=== PATIENT | male | born 1980 | race Caucasian/White ===

== ENCOUNTER 2018-07-26 18:25 | Emergency (ER) | payer MEDICAID ==
[~2018-07-26] VITALS: Ht 167.6 cm; Wt 91.0 kg
[~2018-07-26 18:25] MED LIST: ABILIFY; ALTACE; DEPAKOTE; NEXIUM
[2018-07-26] MEDS ORDERED: BACITRACIN ZINC OINT UDPKT TOP ONE (19:00)
[2018-07-26] MEDS ORDERED: TETANUS, DIPHTHERIA, PERTUSSIS VAC/PF 0.5ML (>7YR OLD) IM ONE (19:00)
[2018-07-26 19:36] LABS: BASOPHILS % 0.4 % (0.0-2.0); EOSINOPHILS % 1.6 % (0.0-5.0); HEMATOCRIT. 38.1 % (42.0-52.0); HEMOGLOBIN. 13.1 g/dL (14.0-18.0); LYMPHOCYTES % 28.4 % (20.0-50.0); MEAN CORPUSCULAR HEMOGLOBIN 30.7 pg (28.0-32.0); MEAN CORPUSCULAR VOLUME 89.2 fL (80.0-94.0); MEAN PLATELET VOLUME 8.1 fl (7.4-10.4); MONOCYTES % 8.9 % (2.0-8.0); NEUTROPHILS % 60.7 % (40.0-76.0); PLATELET 126 x1000/uL (130-400); RED BLOOD CELL COUNT 4.27 mill/uL (4.7-6.1); RED CELL DISTRIBUTION WIDTH 14.1 % (11.6-14.6)
[2018-07-26 19:40] LABS: CHLORIDE 106 mEq/L (98-107)
[2018-07-26 19:44] LABS: ETHANOL BLOOD < 10 mg/dL
[2018-07-26 19:49] LABS: CREATINE KINASE 243 IU/L (39-308)
[2018-07-26] MEDS ORDERED: DILTIAZEM HCL 30MG TABLET PO ONE (20:45)
[2018-07-26 21:01] VITALS: BP 127/69
== END 2018-07-26 23:00 | disposition home or self-care (01) ==
LOC: ER 18:25
DX: S01.81XA Laceration without foreign body of other part of head, initial encounter (principal); R00.2 Palpitations; I48.91 Unspecified atrial fibrillation; F17.200 Nicotine dependence, unspecified, uncomplicated; I51.9 Heart disease, unspecified; X99.1XXA Assault by knife, initial encounter; Y93.89 Activity, other specified; Y92.89 Other specified places as the place of occurrence of the external cause; Z95.0 Presence of cardiac pacemaker
CPT/HCPCS: 36415; 80053; 82550; 83880; 84443; 84484; 85025; 90471; 90715; 93005; 99284; G0482

== ENCOUNTER 2022-04-20 10:55 | Emergency (ER) | payer MEDICAID, OTHER ==
[~2022-04-20] VITALS: Ht 167.6 cm; Wt 81.0 kg
[2022-04-20 10:58] VITALS: BP 130/76
== END 2022-04-20 13:56 | disposition home or self-care (01) ==
LOC: ER 10:55
DX: S40.012A Contusion of left shoulder, initial encounter (principal); I48.91 Unspecified atrial fibrillation; Z86.59 Personal history of other mental and behavioral disorders; X58.XXXA Exposure to other specified factors, initial encounter; Y93.89 Activity, other specified; Y92.89 Other specified places as the place of occurrence of the external cause; Y99.8 Other external cause status
CPT/HCPCS: 73030; 99283

== ENCOUNTER 2022-05-20 15:59 | Emergency (ER) | payer MEDICAID, OTHER ==
[~2022-05-20] VITALS: Ht 157.5 cm; Wt 75.0 kg
[2022-05-20] MEDS ORDERED: IBUPROFEN 400MG TABLET PO ONE (18:30)
[2022-05-20] MEDS ORDERED: DICL100G31 TP (19:49)
[2022-05-20 20:20] VITALS: BP 104/73
== END 2022-05-20 20:21 | disposition home or self-care (01) ==
LOC: ER 15:59
DX: M25.512 Pain in left shoulder (principal); I48.91 Unspecified atrial fibrillation; R56.9 Unspecified convulsions; I51.9 Heart disease, unspecified; Z95.0 Presence of cardiac pacemaker
CPT/HCPCS: 73030; 99283

== ENCOUNTER 2023-02-04 17:32 | Emergency (ER) | payer MEDICAID, OTHER ==
[~2023-02-04] VITALS: Ht 172.7 cm; Wt 89.0 kg
[~2023-02-04 17:32] MED LIST changes: +DICL100G31 TP
[2023-02-04 17:49] VITALS: BP 162/94
[2023-02-04] MEDS ORDERED: ACETAMINOPHEN 325MG TABLET PO ONE (19:00)
[2023-02-04] MEDS ORDERED: ACET-2708 MT (20:43)
== END 2023-02-04 21:38 | disposition home or self-care (01) ==
LOC: ER 17:32
DX: M54.9 Dorsalgia, unspecified (principal); I48.91 Unspecified atrial fibrillation; Z95.0 Presence of cardiac pacemaker
CPT/HCPCS: 99284

== ENCOUNTER 2023-02-11 11:28 | Emergency (ER) | payer MEDICAID ==
[~2023-02-11] VITALS: Ht 162.6 cm; Wt 90.7 kg
[~2023-02-11 11:28] MED LIST changes: +ACET-2708 MT
[2023-02-11 11:36] VITALS: TEMP 98.6; O2SAT 98
[2023-02-11] MEDS ORDERED: FLUORESCEIN SODIUM 1MG/STRIP RIGHTEYE ONE (12:30)
[2023-02-11] MEDS ORDERED: TETRACAINE 0.5% OPHTH DROPS 4ML RIGHTEYE ONE (13:00)
[2023-02-11] MEDS ORDERED: BRIMONIDINE 0.2% OPHTH DROPS 5ML RIGHTEYE ONE (13:15)
[2023-02-11] MEDS ORDERED: ACETAZOLAMIDE SODIUM 500MG/VIAL IV ONE (13:15)
[2023-02-11] MEDS ORDERED: ACETAMINOPHEN 500MG TABLET PO ONE (13:15)
[2023-02-11] MEDS ORDERED: PILOCARPINE HCL 2% OPHTH DROPS 15ML RIGHTEYE SCH (14:00)
[2023-02-11] MEDS ORDERED: TETRACAINE 0.5% OPHTH DROPS 4ML RIGHTEYE NR (14:15)
[2023-02-11] MEDS ORDERED: ACETAMINOPHEN 500MG TABLET PO NR (14:15)
[2023-02-11] MEDS ORDERED: ACET-2708 MT (17:11)
[2023-02-11] MEDS ORDERED: METH50TA6 MT (17:11)
[2023-02-11] MEDS ORDERED: AMOX1TAB16 MT (17:11)
[2023-02-11] MEDS ORDERED: SULF1TAB48 MT (17:11)
[2023-02-11 18:14] VITALS: BP 126/79; PULSE 101; RESP 16
[2023-02-11] MEDS ORDERED: TIMOLOL MALEATE 0.5% OPHTH DROPS 5ML RIGHTEYE SCH (21:00)
== END 2023-02-11 18:42 | disposition home or self-care (01) ==
LOC: ER 11:28
DX: H57.11 Ocular pain, right eye (principal); I48.91 Unspecified atrial fibrillation; Z95.0 Presence of cardiac pacemaker
CPT/HCPCS: 70480; 96374; 99285; J1120; Z7610

== ENCOUNTER 2023-05-04 10:46 | Emergency (ER) | payer MEDICAID ==
[~2023-05-04] VITALS: Ht 172.7 cm; Wt 97.0 kg
[~2023-05-04 10:46] MED LIST changes: +AMOX1TAB16 MT; +METH50TA6 MT; +SULF1TAB48 MT
[2023-05-04 11:12] VITALS: O2SAT 100
[2023-05-04 12:00] LABS: BASOPHILS % 0.4 % (0.0-2.0); EOSINOPHILS % 0.4 % (0.0-5.0); HEMATOCRIT. 46.8 % (42.0-52.0); LYMPHOCYTES % 21.2 % (20.0-50.0); MEAN CORPUSCULAR HEMOGLOBIN 29.8 pg (28.0-32.0); MEAN CORPUSCULAR HGB CONC 34.2 g/dL (31.0-37.0); MEAN CORPUSCULAR VOLUME 87.2 fL (80.0-94.0); MEAN PLATELET VOLUME 8.5 fl (7.4-10.4); MONOCYTES % 13.3 % (2.0-8.0); NEUTROPHILS % 64.7 % (40.0-76.0); PLATELET 159 x1000/uL (130-400); RED BLOOD CELL COUNT 5.36 mill/uL (4.7-6.1); RED CELL DISTRIBUTION WIDTH 13.7 % (11.6-14.6); WHITE BLOOD COUNT 6.4 x1000/uL (4.5-11.0)
[2023-05-04 12:53] LABS: CLARITY URINE CLEAR (CLEAR); COLOR URINE DARK YELLOW (YELLOW); GLUCOSE URINE NEGATIVE (NEGATIVE); KETONES URINE TRACE (NEGATIVE); LEUKOCYTE ESTERASE URINE NEGATIVE (NEGATIVE); NITRITE URINE NEGATIVE (NEGATIVE); OCCULT BLOOD URINE NEGATIVE (NEGATIVE); PROTEIN URINE TRACE (NEGATIVE); SPECIFIC GRAVITY URINE 1.026 (1.005-1.030); UROBILINOGEN URINE 0.2 E.U./dL (0.2-1.0)
[2023-05-04 13:30] LABS: MUCUS URINE TRACE /lpf (NONE/TRACE)
[2023-05-04 13:31] LABS: BACTERIA URINE TRACE; SQUAMOUS EPITHELIAL CELL URINE NONE SEEN /lpf (RARE/1+)
[2023-05-04 13:32] LABS: RBC URINE 0-2 /hpf (0-2); WBC URINE 0-2 /hpf (0-2)
[2023-05-04 13:57] LABS: CHLORIDE 108 mEq/L (98-107); INDEX HEMOLYSI 1 (1-3); INDEX ICTERIC 1 (1-4); INDEX LIPEMIC 1 (1-3); POTASSIUM 4.5 mEq/L (3.5-5.1); SODIUM 137 mEq/L (136-145)
[2023-05-04 14:46] LABS: ALANINE AMINOTRANSFERASE 35 IU/L (13-61); ALBUMIN 3.8 g/dL (3.4-5.0); ASPARTATE AMINOTRANSFERASE 21 IU/L (15-37); BILIRUBIN TOTAL 0.7 mg/dL (0.1-1.0); CALCIUM 9.3 mg/dL (8.5-10.1); CARBON DIOXIDE 22 mEq/L (21-32); CREATININE 0.9 mg/dL (0.6-1.3); GLUCOSE 101 mg/dL (70-105); PROTEIN TOTAL 7.7 g/dL (6.0-8.3); UREA NITROGEN BLOOD 20 mg/dL (7-21)
[2023-05-04] MEDS ORDERED: ACETAMINOPHEN 500MG TABLET PO ONE (15:00)
[2023-05-04 16:00] VITALS: BP 132/87; PULSE 65; RESP 18; TEMP 98.7
== END 2023-05-04 16:01 | disposition home or self-care (01) ==
LOC: ER 10:46
DX: R10.30 Lower abdominal pain, unspecified (principal); I48.91 Unspecified atrial fibrillation; Z86.59 Personal history of other mental and behavioral disorders
CPT/HCPCS: 36415; 74176; 80053; 81003; 85025; 99284

== ENCOUNTER 2023-05-23 13:56 | Emergency (ER) | payer MEDICAID, OTHER ==
[~2023-05-23] VITALS: Ht 160 cm; Wt 90.7 kg
[~2023-05-23 13:56] MED LIST changes: -DICL100G31 TP; +DICL100G58 TP
[2023-05-23 14:16] VITALS: BP 132/82; O2SAT 97
[2023-05-23] MEDS ORDERED: MAGNESIUM/ALUMINUM HYDROXIDE/SIMETHICONE 30ML UDC PO STA (15:45)
[2023-05-23] MEDS ORDERED: SODIUM CHLORIDE 0.9% 1,000 ML IV ONE (15:45)
[2023-05-23] MEDS ORDERED: ONDANSETRON 4MG ODT PO STA (15:45)
[2023-05-23 16:24] LABS: BASOPHILS % 0.5 % (0.0-2.0); EOSINOPHILS % 0.4 % (0.0-5.0); HEMATOCRIT. 48.9 % (42.0-52.0); HEMOGLOBIN. 16.3 g/dL (14.0-18.0); LYMPHOCYTES % 19.3 % (20.0-50.0); MEAN CORPUSCULAR HEMOGLOBIN 29.6 pg (28.0-32.0); MEAN CORPUSCULAR HGB CONC 33.4 g/dL (31.0-37.0); MEAN CORPUSCULAR VOLUME 88.5 fL (80.0-94.0); MEAN PLATELET VOLUME 9.4 fl (7.4-10.4); MONOCYTES % 8.7 % (2.0-8.0); NEUTROPHILS % 71.1 % (40.0-76.0); PLATELET 162 x1000/uL (130-400); RED BLOOD CELL COUNT 5.52 mill/uL (4.7-6.1); RED CELL DISTRIBUTION WIDTH 13.9 % (11.6-14.6); WHITE BLOOD COUNT 8.8 x1000/uL (4.5-11.0)
[2023-05-23 16:37] LABS: CHLORIDE 107 mEq/L (98-107); INDEX HEMOLYSI 1 (1-3); INDEX ICTERIC 1 (1-4); INDEX LIPEMIC 1 (1-3); POTASSIUM 4.7 mEq/L (3.5-5.1); SODIUM 136 mEq/L (136-145)
[2023-05-23] MEDS ORDERED: AZIT250T12 MT (16:42)
[2023-05-23 16:44] LABS: ALANINE AMINOTRANSFERASE 38 IU/L (13-61); ALBUMIN 4.1 g/dL (3.4-5.0); ASPARTATE AMINOTRANSFERASE 18 IU/L (15-37); BILIRUBIN TOTAL 0.7 mg/dL (0.1-1.0); CALCIUM 9.1 mg/dL (8.5-10.1); CARBON DIOXIDE 26 mEq/L (21-32); CREATININE 0.9 mg/dL (0.6-1.3); GLUCOSE 84 mg/dL (70-105); PROTEIN TOTAL 7.9 g/dL (6.0-8.3); UREA NITROGEN BLOOD 14 mg/dL (7-21)
[2023-05-23] MEDS ORDERED: AZITHROMYCIN 500 MG TABLET PO ONE (16:45)
[2023-05-23 17:29] VITALS: PULSE 51; RESP 16; TEMP 98.8
== END 2023-05-23 17:30 | disposition home or self-care (01) ==
LOC: ER 13:56
DX: J18.9 Pneumonia, unspecified organism (principal); Z98.890 Other specified postprocedural states
CPT/HCPCS: 80053; 85025; 36415; 71045; 93005; 99285; Q0162; J7030; Z7610

== ENCOUNTER 2023-06-02 16:41 | Emergency (ER) | payer MEDICAID, OTHER ==
[~2023-06-02] VITALS: Ht 172.7 cm; Wt 91.0 kg
[~2023-06-02 16:41] MED LIST changes: +AZIT250T12 MT
[2023-06-02 16:58] VITALS: BP 131/81; PULSE 70; RESP 18; O2SAT 96
[2023-06-02] MEDS ORDERED: ACETAMINOPHEN 325MG TABLET PO ONE (19:30)
[2023-06-02] MEDS ORDERED: ACETAMINOPHEN 325MG TABLET PO NR (21:45)
[2023-06-02 22:20] VITALS: TEMP 98.8
[2023-06-03] MEDS ORDERED: ACET-2708 MT (01:56)
== END 2023-06-03 05:00 | disposition home or self-care (01) ==
LOC: ER 16:41
DX: H57.12 Ocular pain, left eye (principal); Z95.0 Presence of cardiac pacemaker; Z79.899 Other long term (current) drug therapy
CPT/HCPCS: 70486; 99284

== ENCOUNTER 2023-11-22 21:56 | Emergency (ER) | payer OTHER ==
[~2023-11-22] VITALS: Ht 167.6 cm; Wt 98.0 kg
[~2023-11-22 21:56] MED LIST changes: -ABILIFY; -ACET-2708 MT; -ALTACE; -AMOX1TAB16 MT; +APIX5TAB PO; +ATOR10TA PO; -AZIT250T12 MT; +DAPA5TAB MT; -DEPAKOTE; +KEPP500 PO; -NEXIUM; +SACU1TAB MT; +SPIR25TA PO; -SULF1TAB48 MT
[2023-11-22 21:59] VITALS: O2SAT 98
[2023-11-22 23:43] LABS: BASOPHILS % 0.4 % (0.0-2.0); EOSINOPHILS % 0.5 % (0.0-5.0); HEMATOCRIT. 37.3 % (42.0-52.0); LYMPHOCYTES % 18.8 % (20.0-50.0); MEAN CORPUSCULAR HEMOGLOBIN 30.5 pg (28.0-32.0); MEAN CORPUSCULAR HGB CONC 34.9 g/dL (31.0-37.0); MEAN CORPUSCULAR VOLUME 87.7 fL (80.0-94.0); MEAN PLATELET VOLUME 9.2 fl (7.4-10.4); MONOCYTES % 6.3 % (2.0-8.0); PLATELET 180 x1000/uL (130-400); RED BLOOD CELL COUNT 4.26 mill/uL (4.7-6.1); RED CELL DISTRIBUTION WIDTH 13.5 % (11.6-14.6); WHITE BLOOD COUNT 6.2 x1000/uL (4.5-11.0)
[2023-11-22] MEDS: SODIUM CHLORIDE 0.9% 1,000 ML IV ONE (23:58)
[2023-11-23 00:18] LABS: ALANINE AMINOTRANSFERASE 40 IU/L (10-49); ALBUMIN 4.5 g/dL (3.2-4.8); ASPARTATE AMINOTRANSFERASE 29 IU/L (<34); BILIRUBIN TOTAL 0.5 mg/dL (0.1-1.0); CALCIUM 8.7 mg/dL (8.7-10.4); CARBON DIOXIDE 24 mEq/L (21-32); CHLORIDE 108 mEq/L (98-107); GLUCOSE 173 mg/dL (70-105); POTASSIUM 3.7 mEq/L (3.5-5.1); PROTEIN TOTAL 7.3 g/dL (6.0-8.3); SODIUM 141 mEq/L (136-145); TROPONIN I HIGH SENSITIVITY 4 ng/L (3.0-53); UREA NITROGEN BLOOD 20 mg/dL (9-23)
[2023-11-23] MEDS: MECLIZINE 25MG TABLET PO ONE (00:24)
[2023-11-23] MEDS ORDERED: MECL-217 MT (03:34)
[2023-11-23 03:35] LABS: TROPONIN I HIGH SENSITIVITY 5 ng/L (3.0-53)
[2023-11-23 04:28] VITALS: BP 133/69; PULSE 60; RESP 12; TEMP 98
== END 2023-11-23 04:29 | disposition home or self-care (01) ==
LOC: ER 21:56
DX: R42 Dizziness and giddiness (principal); Z98.890 Other specified postprocedural states; Z86.59 Personal history of other mental and behavioral disorders
CPT/HCPCS: 99285; 96360; 70450; 71045; 80053; 83605; 85025; 84484 ×2; 36415 ×2; 93005; J8597; J7030

== ENCOUNTER 2023-12-20 15:26 | Emergency (ER) | payer MEDICAID, OTHER ==
[~2023-12-20] VITALS: Ht 170.2 cm; Wt 91.0 kg
[~2023-12-20 15:26] MED LIST changes: +MECL-217 MT
[2023-12-20 15:32] VITALS: O2SAT 96
[2023-12-20] MEDS: FLUORESCEIN SODIUM 1MG/STRIP BOTHEYE ONE (16:00)
[2023-12-20] MEDS: TETRACAINE 0.5% OPHTH DROPS 4ML BOTHEYE ONE (16:00)
[2023-12-20] MEDS: KETOROLAC 30MG/ML VIAL IV STA (17:19)
[2023-12-20] MEDS: SODIUM CHLORIDE 0.9% 1,000 ML IV ONE (17:22)
[2023-12-20 17:26] LABS: BASOPHILS % 0.4 % (0.0-2.0); EOSINOPHILS % 0.7 % (0.0-5.0); HEMATOCRIT. 39.4 % (42.0-52.0); HEMOGLOBIN. 13.6 g/dL (14.0-18.0); MEAN CORPUSCULAR HEMOGLOBIN 30.4 pg (28.0-32.0); MEAN CORPUSCULAR HGB CONC 34.6 g/dL (31.0-37.0); MEAN CORPUSCULAR VOLUME 87.8 fL (80.0-94.0); MEAN PLATELET VOLUME 8.5 fl (7.4-10.4); MONOCYTES % 8.9 % (2.0-8.0); PLATELET 186 x1000/uL (130-400); RED BLOOD CELL COUNT 4.48 mill/uL (4.7-6.1); RED CELL DISTRIBUTION WIDTH 13.7 % (11.6-14.6); WHITE BLOOD COUNT 7.5 x1000/uL (4.5-11.0)
[2023-12-20 17:31] LABS: CHLORIDE 106 mEq/L (98-107); POTASSIUM 4.2 mEq/L (3.5-5.1); SODIUM 138 mEq/L (136-145)
[2023-12-20 17:32] LABS: CALCIUM 8.8 mg/dL (8.7-10.4); CARBON DIOXIDE 26 mEq/L (21-32)
[2023-12-20 17:37] LABS: CREATININE 0.9 mg/dL (0.6-1.3); GLUCOSE 100 mg/dL (70-105); UREA NITROGEN BLOOD 20 mg/dL (9-23)
[2023-12-20 17:39] LABS: ALANINE AMINOTRANSFERASE 25 IU/L (10-49); ALBUMIN 4.3 g/dL (3.2-4.8); ASPARTATE AMINOTRANSFERASE 21 IU/L (<34); BILIRUBIN TOTAL 0.4 mg/dL (0.1-1.0); PROTEIN TOTAL 7.3 g/dL (6.0-8.3)
[2023-12-20] MEDS ORDERED: OFLO5DRO LEFTEYE (18:29)
[2023-12-20] MEDS ORDERED: IBUP-2028 MT (18:30)
[2023-12-20 19:10] VITALS: BP 160/78; PULSE 63; RESP 19; TEMP 98
== END 2023-12-20 19:31 | disposition home or self-care (01) ==
LOC: ER 15:26
DX: R51.9 Headache, unspecified (principal); H10.9 Unspecified conjunctivitis; H57.13 Ocular pain, bilateral; F03.90 Unspecified dementia, unspecified severity, without behavioral disturbance, psychotic disturbance, mood disturbance, and anxiety; I10 Essential (primary) hypertension; Z79.899 Other long term (current) drug therapy
CPT/HCPCS: 80053; 85025; 36415; 70450; 96361; 96374; 99285; J1885; J7030; Z7610 ×4

== ENCOUNTER 2023-12-21 14:45 | Emergency (ER) | payer OTHER, MEDICAID ==
[~2023-12-21] VITALS: Ht 162.6 cm; Wt 82.0 kg
[~2023-12-21 14:45] MED LIST changes: +IBUP-2028 MT; +OFLO5DRO LEFTEYE
[2023-12-21 14:49] VITALS: O2SAT 100
[2023-12-21] MEDS: POLYMYXIN B SULFATE/TMP 10ML BOTTLE LEFTEYE SCH (17:02)
[2023-12-21] MEDS: IBUPROFEN 600MG TABLET PO ONE (17:12)
[2023-12-21 18:05] VITALS: BP 143/70; PULSE 72; RESP 18; TEMP 98.7
== END 2023-12-21 18:06 | disposition home or self-care (01) ==
LOC: ER 14:45
DX: H10.9 Unspecified conjunctivitis (principal); F03.90 Unspecified dementia, unspecified severity, without behavioral disturbance, psychotic disturbance, mood disturbance, and anxiety; I10 Essential (primary) hypertension
CPT/HCPCS: 99283

== ENCOUNTER 2024-02-09 18:54 | Emergency (ER) | payer MEDICAID, OTHER ==
[~2024-02-09] VITALS: Ht 170.2 cm; Wt 91.0 kg
[2024-02-09 18:57] VITALS: TEMP 98; O2SAT 98
[2024-02-09 21:10] VITALS: BP 163/72; PULSE 69; RESP 16
[2024-02-09] MEDS: DIPHENHYDRAMINE 50MG/ML VIAL IM ONE (21:10)
[2024-02-09] MEDS: METOCLOPRAMIDE HCL 10MG/2ML VIAL IM ONE (21:10)
[2024-02-09] MEDS: KETOROLAC 15MG/ML VIAL IM ONE (21:10)
[2024-02-09 22:30] LABS: BASOPHILS % 0.4 % (0.0-2.0); EOSINOPHILS % 0.3 % (0.0-5.0); HEMATOCRIT. 41.2 % (42.0-52.0); HEMOGLOBIN. 14.4 g/dL (14.0-18.0); LYMPHOCYTES % 24.7 % (20.0-50.0); MEAN CORPUSCULAR HGB CONC 34.9 g/dL (31.0-37.0); MEAN CORPUSCULAR VOLUME 85.8 fL (80.0-94.0); MEAN PLATELET VOLUME 8.6 fl (7.4-10.4); MONOCYTES % 8.7 % (2.0-8.0); NEUTROPHILS % 65.9 % (40.0-76.0); PLATELET 166 x1000/uL (130-400); RED CELL DISTRIBUTION WIDTH 13.7 % (11.6-14.6); WHITE BLOOD COUNT 5.7 x1000/uL (4.5-11.0)
[2024-02-09 22:37] LABS: CHLORIDE 104 mEq/L (98-107); POTASSIUM 4.1 mEq/L (3.5-5.1); SODIUM 137 mEq/L (136-145)
[2024-02-09 22:38] LABS: CARBON DIOXIDE 27 mEq/L (21-32)
[2024-02-09 22:39] LABS: CALCIUM 9.9 mg/dL (8.7-10.4)
[2024-02-09 22:43] LABS: CREATININE 0.9 mg/dL (0.6-1.3)
[2024-02-09 22:44] LABS: GLUCOSE 88 mg/dL (70-105); UREA NITROGEN BLOOD 14 mg/dL (9-23)
[2024-02-09 22:46] LABS: TROPONIN I HIGH SENSITIVITY < 4 ng/L (3.0-53)
== END 2024-02-09 23:57 | disposition home or self-care (01) ==
LOC: ER 18:54
DX: R51.9 Headache, unspecified (principal); F03.90 Unspecified dementia, unspecified severity, without behavioral disturbance, psychotic disturbance, mood disturbance, and anxiety; I10 Essential (primary) hypertension; Z95.0 Presence of cardiac pacemaker; Z79.899 Other long term (current) drug therapy
CPT/HCPCS: 99284; 80048; 83880; 85025; 84484; 36415; 93005; 96372; J1200; J1885; J2765

== ENCOUNTER 2024-04-26 18:11 | Inpatient (IN) | payer MEDICAID, OTHER ==
[~2024-04-26] VITALS: Ht 170.2 cm; Wt 90.7 kg
[2024-04-26 18:16] VITALS: O2SAT 98
[2024-04-26 18:51] LABS: BASOPHILS % 0.5 % (0.0-2.0); EOSINOPHILS % 0.1 % (0.0-5.0); HEMATOCRIT. 44.1 % (42.0-52.0); LYMPHOCYTES % 19.9 % (20.0-50.0); MEAN CORPUSCULAR HEMOGLOBIN 29.5 pg (28.0-32.0); MEAN CORPUSCULAR HGB CONC 33.9 g/dL (31.0-37.0); MEAN CORPUSCULAR VOLUME 87.1 fL (80.0-94.0); MEAN PLATELET VOLUME 9.2 fl (7.4-10.4); MONOCYTES % 7.2 % (2.0-8.0); NEUTROPHILS % 72.3 % (40.0-76.0); PLATELET 171 x1000/uL (130-400); RED BLOOD CELL COUNT 5.07 mill/uL (4.7-6.1); RED CELL DISTRIBUTION WIDTH 13.7 % (11.6-14.6); WHITE BLOOD COUNT 7.6 x1000/uL (4.5-11.0)
[2024-04-26 18:54] LABS: CLARITY URINE CLEAR (CLEAR); COLOR URINE YELLOW (YELLOW); GLUCOSE URINE NEGATIVE (NEGATIVE); KETONES URINE NEGATIVE (NEGATIVE); LEUKOCYTE ESTERASE URINE NEGATIVE (NEGATIVE); NITRITE URINE NEGATIVE (NEGATIVE); OCCULT BLOOD URINE NEGATIVE (NEGATIVE); PROTEIN URINE NEGATIVE (NEGATIVE); SPECIFIC GRAVITY URINE 1.008 (1.005-1.030); UROBILINOGEN URINE 0.2 E.U./dL (0.2-1.0)
[2024-04-26 18:55] LABS: CHLORIDE 106 mEq/L (98-107); POTASSIUM 3.8 mEq/L (3.5-5.1); SODIUM 139 mEq/L (136-145)
[2024-04-26 18:56] LABS: CALCIUM 9.7 mg/dL (8.7-10.4); CARBON DIOXIDE 27 mEq/L (21-32)
[2024-04-26 19:01] LABS: GLUCOSE 97 mg/dL (70-105); UREA NITROGEN BLOOD 13 mg/dL (9-23)
[2024-04-26 19:02] LABS: INR 1.1; PROTHROMBIN TIME 11.7 sec (9.6-11.0)
[2024-04-26 19:03] LABS: ALANINE AMINOTRANSFERASE 26 IU/L (10-49); ALBUMIN 4.9 g/dL (3.2-4.8); ASPARTATE AMINOTRANSFERASE 20 IU/L (<34); BILIRUBIN DIRECT 0.3 mg/dL (<=3.0); BILIRUBIN TOTAL 0.8 mg/dL (0.1-1.0); PROTEIN TOTAL 7.5 g/dL (6.0-8.3)
[2024-04-26] MEDS: ACETAMINOPHEN 500MG TABLET PO ONE (20:06)
[2024-04-26] MEDS ORDERED: NITROGLYCERIN 0.4MG TABLET SL SL PRN (22:45)
[2024-04-26 23:08] LABS: IRON 96 ug/dL (65-175)
[2024-04-26 23:09] LABS: TRIGLYCERIDE 126 mg/dL (0-150)
[2024-04-26 23:10] LABS: LDL CHOLESTEROL 110 mg/dL (5-100)
[2024-04-26 23:11] LABS: CHOLESTEROL 159 mg/dL (<200); HDL CHOLESTEROL 35 mg/dL (>55); TOTAL IRON BINDING CAPACITY 268 ug/dl (250-425)
[2024-04-26 23:13] LABS: THYROID STIMULATING HORMONE 2.62 uIU/mL (0.55-4.78)
[2024-04-26 23:14] LABS: FOLIC ACID (FOLATE) SERUM 16.39 ng/mL (>5.38)
[2024-04-26 23:15] LABS: VITAMIN B12 SERUM 464 pg/mL (211-911)
[2024-04-26] MEDS: IBUPROFEN 600MG TABLET PO ONE (23:22)
[2024-04-27] VITALS (8 sets, daily range): BP systolic 115–149; BP diastolic 65–91; PULSE 57–77; RESP 18–20; TEMP 35.78064–36.5292; O2SAT 96–100
[2024-04-27] MEDS: KETOROLAC 15MG/ML VIAL IV NR (00:40)
[2024-04-27] MEDS: METOPROLOL TARTRATE 5MG/5ML VIAL IV NR ×2 (03:37→03:57)
[2024-04-27] MEDS: DILTIAZEM HCL 60MG TABLET PO SCH ×2 (04:00→14:19)
[2024-04-27] MEDS: ACETAMINOPHEN 325MG TABLET PO NR (05:21)
[2024-04-27 06:12] LABS: CHLORIDE 106 mEq/L (98-107); POTASSIUM 3.7 mEq/L (3.5-5.1); SODIUM 138 mEq/L (136-145)
[2024-04-27 06:15] LABS: CALCIUM 8.9 mg/dL (8.7-10.4); CARBON DIOXIDE 23 mEq/L (21-32)
[2024-04-27 06:20] LABS: CREATININE 0.9 mg/dL (0.6-1.3); GLUCOSE 100 mg/dL (70-105); UREA NITROGEN BLOOD 13 mg/dL (9-23)
[2024-04-27 06:21] LABS: BASOPHILS % 0.4 % (0.0-2.0); EOSINOPHILS % 0.4 % (0.0-5.0); HEMATOCRIT. 42.8 % (42.0-52.0); HEMOGLOBIN. 14.2 g/dL (14.0-18.0); LYMPHOCYTES % 31.3 % (20.0-50.0); MEAN CORPUSCULAR HEMOGLOBIN 28.9 pg (28.0-32.0); MEAN CORPUSCULAR HGB CONC 33.3 g/dL (31.0-37.0); MEAN CORPUSCULAR VOLUME 86.8 fL (80.0-94.0); MEAN PLATELET VOLUME 9.7 fl (7.4-10.4); MONOCYTES % 9.1 % (2.0-8.0); NEUTROPHILS % 58.8 % (40.0-76.0); PLATELET 154 x1000/uL (130-400); RED BLOOD CELL COUNT 4.93 mill/uL (4.7-6.1); RED CELL DISTRIBUTION WIDTH 13.8 % (11.6-14.6); WHITE BLOOD COUNT 5.6 x1000/uL (4.5-11.0)
[2024-04-27 06:22] LABS: ALANINE AMINOTRANSFERASE 22 IU/L (10-49); ALBUMIN 4.1 g/dL (3.2-4.8); ASPARTATE AMINOTRANSFERASE 16 IU/L (<34); BILIRUBIN TOTAL 0.6 mg/dL (0.1-1.0); PHOSPHORUS 3.2 mg/dL (2.5-4.9); PROTEIN TOTAL 6.7 g/dL (6.0-8.3)
[2024-04-27] MEDS ORDERED: GUAIFENESIN 200MG/10ML SUGAR FREE UDC PO PRN (06:45)
[2024-04-27] MEDS ORDERED: ACETAMINOPHEN 325MG TABLET PO PRN (06:45)
[2024-04-27] MEDS: DILTIAZEM HCL 30MG TABLET PO NR (06:45)
[2024-04-27] MEDS ORDERED: IPRATROPIUM/ALBUTEROL 0.5-3(2.5)MG/3ML NEB NEB PRN (06:45)
[2024-04-27] MEDS ORDERED: ONDANSETRON HCL 4MG/2ML INJ IV PRN (06:45)
[2024-04-27] MEDS ORDERED: CLONIDINE 0.1MG TABLET PO PRN (06:45)
[2024-04-27] MEDS ORDERED: MAGNESIUM/ALUMINUM HYDROXIDE/SIMETHICONE 30ML UDC PO PRN (06:45)
[2024-04-27] MEDS ORDERED: DOCUSATE SODIUM 100MG CAPSULE PO PRN (06:45)
[2024-04-27] MEDS: LEVETIRACETAM 500MG TABLET PO SCH (08:15)
[2024-04-27] MEDS: FAMOTIDINE 20MG TABLET PO SCH (08:16)
[2024-04-27] MEDS: APIXABAN 5 MG TABLET PO SCH (08:16)
[2024-04-27] MEDS: ASPIRIN 81MG EC TABLET PO SCH (08:17)
[2024-04-27] MEDS ORDERED: METOPROLOL TARTRATE 25MG TABLET PO SCH (09:00)
[2024-04-27] MEDS: DIGOXIN 500MCG/2ML AMP IV NR (12:26)
[2024-04-27] MEDS: DILTIAZEM HCL 5MG/ML 5ML VIAL IV NR ×3 (12:26→18:44)
[2024-04-27] MEDS: ACETAMINOPHEN 325MG TABLET PO PRN (12:27)
[2024-04-27 16:11] LABS: CREATINE KINASE 149 IU/L (46-171)
[2024-04-27 16:12] LABS: CREATINE KINASE MB FRACTION 2.2 ng/mL (0.5-3.6); TROPONIN I HIGH SENSITIVITY 5 ng/L (3.0-53)
[2024-04-27] MEDS: DIGOXIN 125MCG TABLET PO SCH (17:28)
[2024-04-27] MEDS: ZOLPIDEM TARTRATE 5MG TABLET PO PRN (20:48)
[2024-04-27 22:11] LABS: CREATINE KINASE MB FRACTION 1.8 ng/mL (0.5-3.6)
[2024-04-28] VITALS: BP 107/55; PULSE 68; RESP 20; TEMP 36.114; O2SAT 97
[2024-04-28 04:00] VITALS: BP 112/76; PULSE 64; RESP 20; TEMP 35.94732; O2SAT 99
[2024-04-28 07:48] VITALS: BP 123/78; PULSE 71; RESP 20; TEMP 36.61404; O2SAT 97
[2024-04-28] MEDS ORDERED: ASPI-1406 PO (09:39)
[2024-04-28] MEDS ORDERED: APIX5TAB PO (09:39)
[2024-04-28] MEDS ORDERED: DILT180C66 MT (09:39)
[2024-04-28] MEDS ORDERED: ATOR10TA PO (09:39)
[2024-04-28] MEDS ORDERED: DIGO-34 PO (09:39)
[2024-04-28] MEDS: DILTIAZEM HCL 5MG/ML 5ML VIAL IV NR (09:55)
[2024-04-28] MEDS: DIGOXIN 500MCG/2ML AMP IV NR (09:55)
[2024-04-28 11:57] VITALS: BP 131/87; PULSE 96; RESP 18; TEMP 36.50292; O2SAT 97
== END 2024-04-28 13:55 | disposition left against medical advice (07) | DRG 201 ==
LOC: ER 18:11 → 8WST 22:15
PROVIDERS: ADMIT Internal Medicine; ATTEND Internal Medicine
DX: I48.91 Unspecified atrial fibrillation (principal); F03.90 Unspecified dementia, unspecified severity, without behavioral disturbance, psychotic disturbance, mood disturbance, and anxiety; I50.9 Heart failure, unspecified; I11.0 Hypertensive heart disease with heart failure; G40.909 Epilepsy, unspecified, not intractable, without status epilepticus; I25.10 Atherosclerotic heart disease of native coronary artery without angina pectoris; Z53.29 Procedure and treatment not carried out because of patient's decision for other reasons; Z79.899 Other long term (current) drug therapy; Z95.0 Presence of cardiac pacemaker
CPT/HCPCS: 36415; 71045; 76604; 80048; 80053; 80061; 80076; 81003; 82550; 82553; 82607; 82746; 83036; 83540; 83550; 83735; 83880; 84100; 84439; 84443; 84484; 85025; 93005; 93970; 99285; J1160; J1885; J3490

== ENCOUNTER 2024-11-13 10:38 | Emergency (ER) | payer MEDICAID, OTHER ==
[~2024-11-13] VITALS: Ht 177.8 cm; Wt 105.0 kg
[~2024-11-13 10:38] MED LIST changes: +AMI2 MT; +ASPI-1406 PO; +DIGO-34 PO; -IBUP-2028 MT; +METO-385 PO
[2024-11-13 10:46] VITALS: O2SAT 94
[2024-11-13] MEDS: DILTIAZEM HCL 5MG/ML 5ML VIAL IV ONE (11:32)
[2024-11-13] MEDS: LACTATED RINGERS 1,000 ML IV SCH (11:33)
[2024-11-13] MEDS: LEVETIRACETAM 500MG PREMIX 100 ML IV ONE ×2 (11:41)
[2024-11-13] MEDS: DILTIAZEM HCL 30MG TABLET PO ONE (11:41)
[2024-11-13 12:07] LABS: BASOPHILS % 0.4 % (0.0-2.0); EOSINOPHILS % 0.4 % (0.0-5.0); HEMATOCRIT. 42.2 % (42.0-52.0); HEMOGLOBIN. 13.9 g/dL (14.0-18.0); LYMPHOCYTES % 20.9 % (20.0-50.0); MEAN CORPUSCULAR HEMOGLOBIN 28.8 pg (28.0-32.0); MEAN CORPUSCULAR VOLUME 87.4 fL (80.0-94.0); MEAN PLATELET VOLUME 9.2 fl (7.4-10.4); MONOCYTES % 7.7 % (2.0-8.0); NEUTROPHILS % 70.6 % (40.0-76.0); PLATELET 179 x1000/uL (130-400); RED BLOOD CELL COUNT 4.83 mill/uL (4.7-6.1); RED CELL DISTRIBUTION WIDTH 14.3 % (11.6-14.6); WHITE BLOOD COUNT 5.7 x1000/uL (4.5-11.0)
[2024-11-13 12:13] LABS: CHLORIDE 107 mEq/L (98-107); POTASSIUM 4.3 mEq/L (3.5-5.1); SODIUM 140 mEq/L (136-145)
[2024-11-13 12:14] LABS: CALCIUM 8.9 mg/dL (8.7-10.4); CARBON DIOXIDE 25 mEq/L (21-32)
[2024-11-13 12:19] LABS: CREATININE 0.8 mg/dL (0.6-1.3); GLUCOSE 97 mg/dL (70-105); UREA NITROGEN BLOOD 18 mg/dL (9-23)
[2024-11-13 12:20] LABS: TROPONIN I HIGH SENSITIVITY 6 ng/L (3.0-53)
[2024-11-13 12:21] LABS: ALANINE AMINOTRANSFERASE 35 IU/L (10-49); ALBUMIN 4.1 g/dL (3.2-4.8); ASPARTATE AMINOTRANSFERASE 21 IU/L (<34); BILIRUBIN DIRECT 0.1 mg/dL (<=3.0); BILIRUBIN TOTAL 0.5 mg/dL (0.1-1.0); PROTEIN TOTAL 6.9 g/dL (6.0-8.3)
[2024-11-13 13:52] VITALS: BP 134/94; PULSE 79; RESP 26; TEMP 36.8; O2SAT 96
[2024-11-13 14:11] LABS: TROPONIN I HIGH SENSITIVITY 6 ng/L (3.0-53)
== END 2024-11-13 14:05 | disposition short-term general hospital (02) ==
LOC: ER 10:38 → EDBEDREQTM 12:38 → EDBEDREQ 12:38 → CANBEDREQ 12:39 → ER 14:05
DX: I48.91 Unspecified atrial fibrillation (principal); R56.9 Unspecified convulsions; E03.9 Hypothyroidism, unspecified; I11.9 Hypertensive heart disease without heart failure; Z79.01 Long term (current) use of anticoagulants; Z79.82 Long term (current) use of aspirin; Z79.84 Long term (current) use of oral hypoglycemic drugs; Z79.899 Other long term (current) drug therapy; Z95.0 Presence of cardiac pacemaker
CPT/HCPCS: 80076; 80048; 85025; 84484; 36415; 71045; 93005; 96365; 96375; 99291; J1953; J3490; Z7610